=== PATIENT | female | born 1945 | race Caucasian/White ===

== ENCOUNTER → 2019-01-28 | Emergency (ER) | payer MEDICARE, OTHER ==
[~2019-01-28] MED LIST: HYDROcodone /APAP 10/325 1 EACH TABLET PO ONE; Lidocaine 1% 5ml 10 MG/ML VIAL ONE
== END ==
LOC: ED 08:00
DX: S61.217A Laceration without foreign body of left little finger without damage to nail, initial encounter (principal); W23.0XXA Caught, crushed, jammed, or pinched between moving objects, initial encounter; Y93.89 Activity, other specified; Y92.810 Car as the place of occurrence of the external cause
CPT/HCPCS: 12001; 73130; 99283